=== PATIENT | male | born 1980 | race Caucasian/White ===

== ENCOUNTER 2017-05-16 23:25 | Emergency (ER) | payer BC ==
--- NOTE | 2017-05-16 23:41 | Emergency Department Record ---
History of Present Illness - General Chief complaint: Male Urogenital Problem Stated complaint: LAZO, UTI Time Seen by Provider: 05/16/17 23:35 Source: Patient Mode of Arrival: Ambulatory Limitations: No limitations - History of Present Illness Initial comments: 37 yo male presents to ED for evaluation of "swelling to the penis" and discharge noted yesterday. Patient denies fevers, chills, or recent illness, and reports that he is sure it is not an "STD". Patient denies health problems at his baseline, reports that he is in a monogamous relationship with his SO. Patient also reports intermittent headaches for the past week, denies neck pain or stiffness symptoms. MD Complaint: Other Onset/Timin -: Days(s) Location: Penis Radiation: None Severity: Mild Consistency: Intermittent Improves with: None Worsens with: None Reports: Denies other symptoms - Related Data Previous Rx's Medication Instructions Recorded Cephalexin [Keflex] 500 mg PO TID #21 cap 05/17/17 Allergies Allergy/AdvReac Type Severity Reaction Status Date / Time meperidine HCl [From Demerol] Allergy HYPERSENSIT Verified 01/05/14 21:53 IVITY tramadol Allergy NAUSEA Verified 01/05/14 21:53 Review of Systems Constitutional: Denies: Chills, Fever, Malaise, Night sweats Eyes: Denies: Eye discharge, Eye pain ENT: Denies: Congestion, Ear pain, Epistaxis Respiratory: Denies: Cough, Dyspnea Cardiovascular: Denies: Chest pain, Dyspnea on exertion Endocrine: Denies: Fatigue, Heat or cold intolerance Gastrointestinal: Denies: Abdominal pain, Nausea, Vomiting Genitourinary: Reports: Discharge. Denies: Dysuria, Frequency, Hematuria, Incontinence, Retention, Testicular pain, Testicular mass Musculoskeletal: Denies: Arthralgia, Back pain, Gout, Joint swelling Skin: Denies: Bruising, Change in color Neurological: Denies: Abnormal gait, Confusion, Headache, Seizure Psychiatric: Denies: Anxiety Hematological/Lymphatic: Denies: Anemia, Blood Clots Past Medical History - SOCIAL HISTORY Smoking Status: Former smoker - RESPIRATORY Hx Respiratory Disorders: No - CARDIOVASCULAR Hx Cardio Disorders: No - NEURO Hx Neuro Disorders: No - GI Hx GI Disorders: No - Hx Genitourinary Disorders: No - ENDOCRINE Hx Endocrine Disorders: No - MUSCULOSKELETAL Hx Musculoskeletal Disorders: Yes Comment:: back pain - PSYCH Hx Psych Problems: No - HEMATOLOGY/ONCOLOGY Hx Hematology/Oncology Disorders: No Family Medical History Hx Diabetes: Grandparents Hx Heart Disease: Grandparents Physical Exam - General General Appearance: Alert, Oriented x3, Cooperative, No acute distress Limitations: No limitations - Head Head exam: Atraumatic, Normocephalic, Normal inspection Head exam detail: negative: Abrasion, Contusion, Zavala's sign, General tenderness, Hematoma, Laceration - Eye Eye exam: Normal appearance. negative: Conjunctival injection, Periorbital swelling, Periorbital tenderness, Scleral icterus - ENT Ear exam: negative: Auricular hematoma, Auricular trauma Nasal Exam: negative: Active bleeding, Discharge, Dried blood, Foreign body Mouth exam: negative: Drooling, Laceration, Muffled voice, Tongue elevation - Neck Neck exam: Normal inspection. negative: Meningismus, Tenderness - Respiratory Respiratory exam: Normal lung sounds bilaterally. negative: Rales, Respiratory distress, Rhonchi - Cardiovascular Cardiovascular Exam: Regular rate, Normal rhythm, Normal heart sounds - GI/Abdominal GI/Abdominal exam: Soft. negative: Rebound, Rigid, Tenderness - Rectal Rectal exam: Deferred - exam: Deferred - Extremities Extremities exam: Normal inspection. negative: Calf tenderness, Pedal edema, Tenderness - Back Back exam: Denies: CVA tenderness (R), CVA tenderness (L) - Neurological Neurological exam: Alert, Normal gait, Oriented X3 - Psychiatric Psychiatric exam: Normal affect, Normal mood - Skin Skin exam: Normal color. negative: Abrasion Type of lesion: negative: abrasion Course Vital Signs 05/16/17 23:33 Temperature 97.8 F Pulse Rate [ 70 Pulse Ox Probe] Respiratory 18 Rate Blood Pressure 132/82 [Left Arm] Pulse Ox 96 - Reevaluation(s) Reevaluation #1: 05/16/17 23:59 UA reviewed: >50 WBCs 1+ Bacteria Will initiate treatment with Keflex for UTI symptoms with instructions to follow -up with Dr. Sin in 5-7 days as directed. Disposition Disposition: Discharge Clinical Impression: UTI (urinary tract infection) Qualifiers: Urinary tract infection type: acute cystitis Hematuria presence: without hematuria Qualified Code(s): N30.00 - Acute cystitis without hematuria Disposition: Home, Self-Care Condition: (2) Stable Instructions: Urinary Tract Infection in Men (ED) Additional Instructions: Return to ED if your symptoms worsen or if you have any concerns. Keflex as directed. Follow-up with Dr. Sin in 5-7 days as directed. Prescriptions: Cephalexin [Keflex] 500 mg PO TID #21 cap Forms: Patient Portal Access Time of Disposition: 00:02 Quality - Quality Measures Quality Measures: N/A - Blood Pressure Screening Does Patient Have Any of the Following: No Blood Pressure Classification: Pre-Hypertensive BP Reading Systolic Measurement: 132 Diastolic Measurement: 82 Screening for High Blood Pressure: < Pre-Hypertensive BP, F/U Documented > [ G8950] Pre-Hypertensive Follow-up Interventions: Referral to alternative/primary care provider.
[2017-05-16 23:54] LABS: URINE APPEARANCE CLEAR; URINE BILIRUBIN NEGATIVE (NEGATIVE); URINE BLOOD TRACE-I (NEGATIVE); URINE COLOR YELLOW; URINE GLUCOSE (UA) NEGATIVE (NEGATIVE); URINE KETONE NEGATIVE (NEGATIVE); URINE LEUKOCYTE ESTERASE TRACE (NEGATIVE); URINE NITRITE NEGATIVE (NEGATIVE); URINE PROTEIN NEGATIVE (NEGATIVE); URINE UROBILINOGEN 0.2 E.U./dL (0.20 - 1.00)
[2017-05-16 23:57] LABS: URINE BACTERIA 1+; URINE EPITHELIAL CELLS 0 - 2 (FEW); URINE RBC 0 - 2 (NONE SEEN); URINE WBC >50 (0-2/hpf)
[2017-05-17] MEDS: CEPHALEXIN 500 MG CAPSULE PO STA (00:12)
== END 2017-05-17 00:16 | disposition home or self-care (01) ==
LOC: ER 23:25
DX: N30.00 Acute cystitis without hematuria (principal); R51 Headache; N48.89 Other specified disorders of penis
CPT/HCPCS: 81001; 99283

== ENCOUNTER 2017-07-09 21:15 | Emergency (ER) | payer BC ==
[2017-07-09] MEDS ORDERED: IBUPROFEN 400 MG TABLET PO ONE (21:27)
--- NOTE | 2017-07-09 21:31 | Emergency Department Record ---
History of Present Illness - General Chief Complaint: Knee injury Stated Complaint: LT KNEE PAIN/SWELLING Time Seen by Provider: 07/09/17 21:16 Source: Patient Mode of Arrival: Wheelchair Limitations: No limitations - History of Present Illness Initial Comments: 37 yo male presents to ED for evaluation of pain following an injury to the left knee while playing football 1 hour ago, reports that he may have hyper- extended the knee resulting in pain to the medial knee. Patient denies other injury, denies health problems at his baseline. MD Complaint: Knee injury Onset/Timin -: Hour(s) Injury: Knee: Left Type of Injury: Hyperextension Severity: Moderate Improves With: Nothing Worsens With: Movement Context: Running - Related Data Home Medications Medication Instructions Recorded Confirmed Last Taken Esomeprazole Magnesium [Nexium] 20 mg PO DAILY 07/09/17 07/09/17 Unknown Loratadine [Claritin] 10 mg PO DAILY 07/09/17 07/09/17 Unknown Previous Rx's Medication Instructions Recorded Hydrocodone/Acetaminophen [Asher 1 each PO Q6H PRN #15 tablet 07/09/17 5-325 Tablet] Allergies Allergy/AdvReac Type Severity Reaction Status Date / Time meperidine HCl [From Demerol] Allergy HYPERSENSIT Verified 01/05/14 21:53 IVITY tramadol Allergy NAUSEA Verified 01/05/14 21:53 Review of Systems Constitutional: Denies: Chills, Fever, Malaise, Night sweats Eyes: Denies: Eye discharge, Eye pain ENT: Denies: Congestion, Ear pain, Epistaxis Respiratory: Denies: Cough, Dyspnea Cardiovascular: Denies: Chest pain, Dyspnea on exertion Endocrine: Denies: Fatigue, Heat or cold intolerance Gastrointestinal: Denies: Abdominal pain, Nausea, Vomiting Genitourinary: Denies: Incontinence, Retention Musculoskeletal: Reports: Arthralgia. Denies: Back pain, Gout, Joint swelling Skin: Denies: Bruising, Change in color Neurological: Denies: Abnormal gait, Confusion, Headache, Seizure Psychiatric: Denies: Anxiety Hematological/Lymphatic: Denies: Anemia, Blood Clots Past Medical History - SOCIAL HISTORY Smoking Status: Former smoker - RESPIRATORY Hx Respiratory Disorders: No - CARDIOVASCULAR Hx Cardio Disorders: No - NEURO Hx Neuro Disorders: No - GI Hx GI Disorders: No - Hx Genitourinary Disorders: No - ENDOCRINE Hx Endocrine Disorders: No - MUSCULOSKELETAL Hx Musculoskeletal Disorders: Yes Comment:: back pain - PSYCH Hx Psych Problems: No - HEMATOLOGY/ONCOLOGY Hx Hematology/Oncology Disorders: No Family Medical History Hx Diabetes: Grandparents Hx Heart Disease: Grandparents Physical Exam - General General Appearance: Alert, Oriented x3, Cooperative, Mild distress Limitations: No limitations - Head Head exam: Atraumatic, Normocephalic, Normal inspection Head exam detail: negative: Abrasion, Contusion, Zavala's sign, General tenderness, Hematoma, Laceration - Eye Eye exam: Normal appearance. negative: Conjunctival injection, Periorbital swelling, Periorbital tenderness, Scleral icterus - ENT Ear exam: negative: Auricular hematoma, Auricular trauma Nasal Exam: negative: Active bleeding, Discharge, Dried blood, Foreign body - Neck Neck exam: Normal inspection. negative: Meningismus, Tenderness - Respiratory Respiratory exam: Normal lung sounds bilaterally. negative: Rales, Respiratory distress, Rhonchi, Stridor - Cardiovascular Cardiovascular Exam: Regular rate, Normal rhythm, Normal heart sounds Peripheral Pulses: 3+: Dorsalis Pedis (L) - GI/Abdominal GI/Abdominal exam: Soft. negative: Rebound, Rigid, Tenderness - Rectal Rectal exam: Deferred - exam: Deferred - Extremities Extremities exam: Tenderness, Other (Patellar/quadriceps tendons are intact on examination, pain with extension of the lower leg, pain on MCL stress on examination of the knee, ligaments are stable.). negative: Calf tenderness, Pedal edema - Back Back exam: Reports: Normal inspection. Denies: CVA tenderness (R), CVA tenderness (L) - Neurological Neurological exam: Alert, Oriented X3 - Psychiatric Psychiatric exam: Normal affect, Normal mood - Skin Skin exam: Normal color. negative: Abrasion Type of lesion: negative: abrasion Course Vital Signs 07/09/17 21:21 Temperature 98.4 F Pulse Rate [ 85 Pulse Ox Probe] Respiratory 18 Rate Blood Pressure 122/71 [Left Arm] Pulse Ox 99 - Reevaluation(s) Reevaluation #1: 07/09/17 22:41 Left knee: Deep sulcus sign with lateral femoral condyle impaction fracture Joint effusion Likely MCL/ACL tear. Case was discussed with Dr. Glynn, recommends knee immobilizer and crutches with analgesia and instructions for follow-up. Patient and his SO were updated on all results and agree with the plan of care as discussed. Disposition Disposition: Discharge Clinical Impression: Knee fracture, left Tear, knee, anterior cruciate ligament Qualifiers: Encounter type: initial encounter Laterality: left Qualified Code(s): S83.512A - Sprain of anterior cruciate ligament of left knee, initial encounter Disposition: Home, Self-Care Condition: (2) Stable Instructions: Knee Pain (ED) Additional Instructions: Return to ED if your symptoms worsen or if you have any concerns. Knee immobilizer and crutches as directed. Follow-up with your family doctor in 3-5 days as directed. Ibuprofen/Ice/Asher as directed for pain symptoms. Prescriptions: Hydrocodone/Acetaminophen [Asher 5-325 Tablet] 1 each PO Q6H PRN #15 tablet PRN Reason: Pain - Moderate (5-7) Forms: Patient Portal Access Time of Disposition: 22:45 Quality - Quality Measures Quality Measures: N/A - Blood Pressure Screening Does Patient Have Any of the Following: No Blood Pressure Classification: Normal BP Reading Systolic Measurement: 118 Diastolic Measurement: 71 Screening for High Blood Pressure: < Normal BP, F/U Not Required > [G8783]
[2017-07-09] MEDS ORDERED: HYDROCODONE/APAP 5/325MG TABLET PO ONE ×2 (22:26→22:45)
--- NOTE | 2017-07-10 10:41 | RADIOLOGY REPORT ---
EXAM: LEFT KNEE HISTORY: INJURED THE LEFT KNEE PLAYING FOOTBALL. UNABLE TO STRAIGHTEN THE LEG. LEFT KNEE PAIN. TECHNIQUE: Four views of the left knee were obtained. FINDINGS: There is a deep sulcus sign involving the lateral femoral condyle consistent with impaction type fracture. This is seen commonly in association with tear of the anterior cruciate ligament. A moderate sized suprapatellar joint effusion is present. On the oblique view there appears to be widening of the medial aspect of the knee joint space indicating a possible medial collateral ligament injury. No other associated fractures are visible. There are mild arthritic changes within the medial and patellofemoral compartments. IMPRESSION: 1. CONSTELLATION OF FINDINGS SUGGESTIVE OF ANTERIOR CRUCIATE AND MEDIAL COLLATERAL LIGAMENT TEARS ABOVE. 2. IMPACTION TYPE FRACTURE INVOLVING THE ANTERIOR ASPECT OF THE LATERAL FEMORAL CONDYLE. JOB NUMBER: [id number] [facility]
== END 2017-07-09 23:37 | disposition home or self-care (01) ==
LOC: ER 21:15
DX: S72.422A Displaced fracture of lateral condyle of left femur, initial encounter for closed fracture (principal); S83.512A Sprain of anterior cruciate ligament of left knee, initial encounter; X50.0XXA Overexertion from strenuous movement or load, initial encounter; Y93.61 Activity, american tackle football
CPT/HCPCS: 99283; 99284